=== PATIENT | female | born 1970 | race African-American/Black ===

== ENCOUNTER 2017-10-24 11:13 | Emergency (ER) | payer OTHER | END 2017-10-24 12:20 | disposition home or self-care (01) | LOC: ER 12:20 | DX: L74.0 Miliaria rubra (principal); L30.9 Dermatitis, unspecified | CPT/HCPCS: 99283 ==

== ENCOUNTER → 2018-02-04 | Outpatient (CLI) | payer OTHER ==
[2017-10-24 11:48] VITALS: BP 146/93
[~2018-02-04] MED LIST: DIPH25CA58 PO; PRED50TA PO; TRIA15OI TP
--- NOTE | 2018-02-04 16:47 | RAD ---
Examination: Ultrasound pelvis HISTORY: History of menorrhagia COMPARISON: None available. Findings: The uterus measures 8.7 x 5.8 x 7.9 cm. There is a 4.2 cm heterogeneous echogenicity identified in the uterus likely fibroid. Endometrium is not clearly identified as it is obscured by fibroid. The right ovary could not be clearly identified. The left ovary measures 2.0 x 1.0 x 1.0 cm. Blood flow identified in the left ovary. IMPRESSION: 1. Heterogeneous echogenicity identified in the uterus measuring 4.2 cm likely fibroid. The endometrium is obscured by the fibroid. 2. Right ovary obscured by bowel gas. Electronically signed by: Heladio De La Cruz MD (02/04/2018 4:44 PM) [id number]
== END | disposition home or self-care (01) ==
LOC: US 14:52
PROVIDERS: ATTEND Family Medicine
DX: N92.1 Excessive and frequent menstruation with irregular cycle (principal)
CPT/HCPCS: 76830; 76856

== ENCOUNTER → 2018-02-19 | Outpatient (CLI) | payer OTHER ==
[2017-10-24 11:48] VITALS: BP 146/93
--- NOTE | 2018-02-24 09:52 | RAD ---
DATE: 02/20/2018 EXAM: MAMMO CHI SCREENING BILATERAL HISTORY: Routine screening COMPARISON: None. This exam is a baseline. This study was interpreted with the benefit of Computerized Aided Detection (CAD ). Breast Density: SCATTERED The breast parenchyma shows scattered fibroglandular densities. Breast parenchyma level B. FINDINGS: Multiple very small masses are well-circumscribed and smoothly marginated. No suspicious calcification cluster or distortion. No dominant mass. No suspicious mass. IMPRESSION: BI-RADS CATEGORY: 2 BENIGN FINDING(S) RECOMMENDED FOLLOW-UP: PQRS compliance statement: Patient information was entered into a reminder system with a target due date in 1 year for the next mammogram. Mammography is a sensitive method for finding small breast cancers, but it does not detect them all and is not a substitute for careful clinical examination. A negative mammogram does not negate a clinically suspicious finding and should not result in delay in biopsying a clinically suspicious abnormality. "Our facility is accredited by the [employer] Mammography Program." PEPPERD
== END | disposition home or self-care (01) ==
LOC: MAMMO 14:28
PROVIDERS: ATTEND Family Medicine
DX: N63.0 Unspecified lump in unspecified breast (principal)
CPT/HCPCS: 77063; 77067

== ENCOUNTER → 2018-09-05 | Outpatient (CLI) | payer OTHER ==
[2017-10-24 11:48] VITALS: BP 146/93
[~2018-09-05] VITALS: Ht 170.2 cm; Wt 75.3 kg
[~2018-09-05] MED LIST changes: +AMLO10TA8 PO; +SINCALIDE 1.51 MCG in IV NORMAL SALINE 50ML 30 ML IV ONE
--- NOTE | 2018-09-05 13:29 | RAD ---
Exam performed: Nuclear medicine hepatobiliary scan. History: Bloating, nausea COMPARISON: None available Following intravenous administration of 5.5 mCi of Choletec tagged with Tc, sequential gamma camera images of the right upper quadrant of the abdomen were obtained. There is prompt accumulation of radionuclide in the liver which appears to be unremarkable Prompt accumulation in the central intrahepatic biliary radicals, gallbladder, common bile duct and small bowel is noted. Patient was also infused with 1.5mcg of CCK and gallbladder ejection fraction was calculated which measures 74% Impression: Normal nuclear hepatobiliary scan with gallbladder ejection fraction measuring 74%. Electronically signed by: Heladio De La Cruz MD (09/05/2018 1:26 PM) [id number]
--- NOTE | 2018-09-05 14:14 | RAD ---
Limited abdomen ultrasound study Clinical indications: Epigastric pain. FINDINGS: The pancreas is homogeneous without focal enlargement. No focal aneurysmal dilatation of the abdominal aorta is seen. The intrahepatic portion of the IVC is unremarkable. There is attenuation of sound throughout the liver which may be seen with fatty infiltration of the liver. This decreases the sensitivity of sonography to detect focal hepatic lesions. No focal hepatic mass is seen otherwise. The liver measures 17.5 centers in length which is normal. The gallbladder is normal without gallstones. The extra hepatic bile duct measures 4.7 mm in caliber which is normal. The length of the right kidney is 10.9 cm. No hydronephrosis or renal mass or perinephric fluid collection is seen on the right side. IMPRESSION: The engineering technologist discovered a small echogenic area within the extra hepatic bile duct. The technologist's impression is a possible stone in the extra hepatic bile duct. However, no shadowing is seen here and there is no dilatation of the biliary tree. Therefore, this is a questionable finding. Correlation with liver function tests is recommended. Fatty infiltration of the liver. Electronically signed by: Aaron Rajput MD (09/05/2018 2:11 PM) [id number]
== END | disposition home or self-care (01) ==
LOC: US 07:45
PROVIDERS: ATTEND Internal Medicine Gastroenterology
DX: K76.0 Fatty (change of) liver, not elsewhere classified (principal)
CPT/HCPCS: 76705; 78227; A9537; J2805

== ENCOUNTER → 2018-10-03 | Day surgery (SDC) | payer OTHER ==
[~2018-10-03] MED LIST changes: +IV RINGERS,LACTATED 1000ML 1,000 ML IV SCH; +MIDAZOLAM HCL/PF 5 MG/5 ML VIAL. IV ONE; +MIDAZOLAM HCL/PF 5 MG/5 ML VIAL. ONE; -SINCALIDE 1.51 MCG in IV NORMAL SALINE 50ML 30 ML IV ONE; +diphenhydrAMINE 50 MG/ML VIAL IV ONE; +diphenhydrAMINE 50 MG/ML VIAL ONE; +fentaNYL PF VIAL 100 MCG/2 ML VIAL IV ONE; +fentaNYL PF VIAL 100 MCG/2 ML VIAL ONE
[2018-10-03 11:45] VITALS: BP 131/91
--- NOTE | 2018-10-04 01:03 | HP ---
ADMIT DATE: 10/03/2018 UPDATED HISTORY AND PHYSICAL REFERRING PHYSICIAN: Korina Loomis MD. HISTORY OF PRESENT ILLNESS: This 48-year-old female with past medical history significant for hypertension, anxiety, seen with persistent epigastric pains, associated bloating, belching and nausea. She has had increased difficulties postprandially. Antibiotics were utilized for H. pylori therapy without improvement in her symptoms. There is no family history of gallbladder disease or peptic ulcer disease. No dysphagia is present. With continued issues, she requests additional evaluation. Prior ultrasound and PIPIDA scan were unrevealing for cholelithiasis and/or symptom reproduction with Kinevac. PAST MEDICAL HISTORY: Hypertension, anxiety. ALLERGIES: None. MEDICATIONS: Include amlodipine 10 mg daily. SOCIAL HISTORY: Smoker and drinker. FAMILY HISTORY: Noncontributory. REVIEW OF SYSTEMS: Per records. PHYSICAL EXAMINATION: GENERAL: Reveals a well-nourished, well-developed female who is alert and cooperative in no acute distress. VITAL SIGNS: Temperature 97, pulse 84, respiratory rate 18. HEENT: Normocephalic and atraumatic head. Pupils and extraocular muscles are not tested. Sclerae anicteric. NECK: Supple. LUNGS: Clear. CARDIOVASCULAR: Reveals S1, S2 without S3, S4 or appreciable murmur. ABDOMEN: Reveals soft abdomen, normal bowel sounds, without appreciable hepatosplenomegaly. EXTREMITIES: Reveals no cyanosis, clubbing or edema. IMPRESSION: Epigastric abdominal pain, nausea, etiology is to be determined and chronic cholecystitis is less likely with prior hepatobiliary studies. Peptic ulcer disease, malignancy, celiac disease, gastroparesis in the differential. Therefore, if upper endoscopy is unrevealing, gastric emptying study would be pursued. ÓSCAR VASQUEZ MD DR: LASHONDA/tres JOB#: [id number] / [id number]
== END | disposition home or self-care (01) ==
LOC: SURG 10:05
PROVIDERS: ATTEND Internal Medicine Gastroenterology
DX: K29.50 Unspecified chronic gastritis without bleeding (principal); I10 Essential (primary) hypertension; F41.9 Anxiety disorder, unspecified; Z79.899 Other long term (current) drug therapy; F17.200 Nicotine dependence, unspecified, uncomplicated; Z72.89 Other problems related to lifestyle
CPT/HCPCS: 43235; J1200; J2250; J3010

== ENCOUNTER → 2018-10-31 | Outpatient (CLI) | payer OTHER ==
[2018-10-03 11:45] VITALS: BP 131/91
[~2018-10-31] MED LIST changes: -IV RINGERS,LACTATED 1000ML 1,000 ML IV SCH; -MIDAZOLAM HCL/PF 5 MG/5 ML VIAL. IV ONE; -MIDAZOLAM HCL/PF 5 MG/5 ML VIAL. ONE; -diphenhydrAMINE 50 MG/ML VIAL IV ONE; -diphenhydrAMINE 50 MG/ML VIAL ONE; -fentaNYL PF VIAL 100 MCG/2 ML VIAL IV ONE; -fentaNYL PF VIAL 100 MCG/2 ML VIAL ONE
--- NOTE | 2018-10-31 15:06 | RAD ---
EXAM: NUCLEAR GASTRIC EMPTYING SCAN. HISTORY: Bloating, nausea COMPARISON: None. TECHNIQUE: Scintigraphic images were obtained over the stomach following oral administration of 2.1 mCi of 99m-Tc sulfur colloid in an egg based meal. FINDINGS: The stomach appears normal in contour. There is clearance of activity into the small bowel. The remaining fraction of gastric activity is as follows. 1 hour 41% (normal range 34.8-91%) 2 hour 26% (normal range 2.7-60%) 4 hour 1% (normal range 0-10%) IMPRESSION: 1. Normal gastric emptying. Electronically signed by: Tiffany Mota MD (10/31/2018 3:03 PM) [facility]
== END | disposition home or self-care (01) ==
LOC: NM 09:32
PROVIDERS: ATTEND Internal Medicine Gastroenterology
DX: R10.13 Epigastric pain (principal); R11.0 Nausea; R14.0 Abdominal distension (gaseous)
CPT/HCPCS: 78264; A9541

== ENCOUNTER → 2018-12-19 | Outpatient (CLI) | payer MEDICAID ==
[2018-10-03 11:45] VITALS: BP 131/91
[~2018-12-19] MED LIST changes: +CONTRAST GIVEN. MC PRN; +IOHEXOL 240 MG/ML 50ML VIAL. PO ONE; +IOHEXOL 300 MG/ML 100ML VIAL. IV ONE
--- NOTE | 2018-12-19 11:23 | RAD ---
CT of the abdomen and pelvis with contrast 12/19/2018 11:16 AM Indication: Abdominal pain Comparison study: None Technique: Multidetector CT imaging of the abdomen and pelvis was performed following the administration of IV contrast. Findings: The partially visualized lung bases demonstrate no acute abnormality. The liver, gallbladder, spleen, bilateral adrenal glands, bilateral kidneys, and pancreas, are grossly unremarkable. There is no bowel obstruction. No evidence of acute inflammatory change involving visualized bowel is identified. Appendix is visualized and unremarkable in appearance. Bladder is grossly unremarkable. No free fluid or free air is seen in the abdomen or pelvis. No acute osseous changes are identified. Impression: No evidence of acute intra-abdominal abnormality is identified. CT DOSING PQRS STATEMENT: One or more of the following individualized dose reduction techniques were utilized for this examination: 1. Automated exposure control 2. Adjustment of the mA and/or kV according to patient size 3. Use of iterative reconstruction technique Electronically signed by: Wing Kebede MD (12/19/2018 11:20 AM) [id number]
== END | disposition home or self-care (01) ==
LOC: CT 10:11
PROVIDERS: ATTEND Internal Medicine Gastroenterology
DX: R10.9 Unspecified abdominal pain (principal); R11.2 Nausea with vomiting, unspecified
CPT/HCPCS: 74177; Q9966; Q9967